=== PATIENT | female | born 1985 | race Caucasian/White ===

== ENCOUNTER 2021-08-10 12:03 | Emergency (ER) | payer SELFPAY ==
[2021-08-10 12:09] VITALS: BP 114/75; PULSE 101; RESP 18; TEMP 36.6; O2SAT 100; BMI 24.2
--- NOTE | 2021-08-10 12:16 | ED_ITS ---
HPI - Skin/Abscess/Foreign Bdy General: Chief complaint: Skin/Abscess/Foreign Body Stated complaint: throat access Time Seen by Provider: 08/10/21 12:14 History of Present Illness: HPI narrative: Patient is a 35-year-old female comes to the ED with a swollen mass on neck. Patient says on Wednesday she noticed she had mild sore throat with some tenderness on the left submandibular region. Today patient woke up and she had significant swelling in left submandibular region with a palpable mass. She states that it hurts to swallow but has no lip or tongue swelling or any trouble breathing or throat swelling. Neck mass is very painful she rates it currently a 9 out of 10. Denies any skin abrasion or dental pain preceding neck mass. Associated symptoms: Deny chills, fever(s), nausea or vomiting Review of Systems Const: Denies: fever(s), chills or fatigue Eyes: Denies: change in vision or eye discomfort ENMT: Reports: odynophagia and other (Swollen and tender left submandibular mass); Denies: throat pain, nasal discharge or nasal congestion Card: Denies: chest pain, palpitations, edema, swelling of feet/ankles, dyspnea on exertion or orthopnea Resp: Denies: dyspnea, productive cough or non-productive cough GI: Denies: abdominal pain, nausea, vomiting, diarrhea, constipation or hematochezia : Denies: flank pain, dysuria or hematuria Musc: Denies: neck pain, back pain or extremity swelling Skin/Breast: Reports: rash (skin over left submandibular) and erythema (skin over left submandibular); Denies: new lesions Neuro: Denies: headache(s), numbness in extremities or weakness in extremities Physical Exam Const: COMMON NORMALS: no acute distress, patient oriented x3 and alert HENMT: COMMON NORMALS: normocephalic HEAD & SCALP: normocephalic MOUTH: Normal oral and palatal mucosa present THROAT: posterior oropharynx normal and uvula midline Eye: COMMON NORMALS: Equal, round and reactive pupils present PUPIL: Yes Equal, round and reactive pupils present Neck/C-Spine: COMMON NORMALS: supple GENERAL: Yes normal visual inspection, Yes lymphadenopathy Lymphadenopathy location: submandibular rubbery and tender 2 cm and Yes submandibular swelling (Left side) OTHER: No purulent drainage from left submandibular mass. Resp: COMMON NORMALS: normal respiratory effort, No retractions, No use of accessory muscles and clear to auscultation bilaterally AUSCULTATION: clear to auscultation bilaterally Cardio: COMMON NORMALS: regular rate, regular rhythm, S1 normal heart sound present, S2 normal heart sound present, No gallops present (Cardio), No clicks present (Cardio), No murmurs present (Cardio) and Peripheral pulses 2+ throughout RATE: regular rate RHYTHM: regular rhythm HEART SOUNDS: S1 normal heart sound present and S2 normal heart sound present PERIPHERAL PULSES: Peripheral pulses 2+ throughout GI: COMMON NORMALS: Normal to inspection, nondistended, normoactive bowel sounds present, Soft to palpation, non-tender and no masses PALPATION: Yes Soft to palpation : COMMON NORMALS: Yes no CVA tenderness BLADDER/KIDNEY EXAM: Yes no CVA tenderness Back/Pelvis: COMMON NORMALS: no CVA tenderness Extremity: COMMON NORMALS: normal to inspection Neuro: COMMON NORMALS: patient oriented x3 and moves all extremities SENSORIUM/ORIENTATION: Yes alert Skin: NARRATIVE SKIN EXAM: Patient has warmth, tenderness and erythema on skin over left submandibular region. Findings suggestive of cellulitis. GENERAL SKIN EXAM: dry skin Course Vital Signs: Vital signs: Vital Signs Temperature 97.9 F 08/10/21 12:09 Pulse Rate 79 08/10/21 15:43 Respiratory Rate 16 08/10/21 15:43 Blood Pressure 119/72 08/10/21 15:43 Pulse Oximetry 96 08/10/21 15:43 MDM - Skin/Abscess/Foreign Bdy MDM Narrative: Medical decision making narrative: Patient is a 35-year-old female comes to the ED with a left submandibular mass. Mass started approximately 2 days ago. patient appears in no acute distress and denies any trouble breathing and has no angioedema. Left submandibular masses approximately 2 cm upon palpation, likely a reactive submandibular lymph node. It has erythema, warmth and tenderness as well. No purulent drainage. Vitals are stable. Patient has a white blood cell count of 13.6. Rest of CBC and CMP were unremarkable. hCG negative. CT of neck showed some left submandibular cellulitis with reactive submandibular lymph nodes. Patient was given a dose of IV Rocephin and Decadron while here in the ED. Patient diagnosed with cellulitis and discharged home with a prescription for Bactrim. She was told to follow-up with her PCP in 7 to 10 days reevaluation. Return to ED precautions given. Patient understood and agreed with plan. Lab Data: Labs: Lab Results 08/10/21 08/10/21 08/10/21 12:40 12:40 12:40 WBC 13.6 10^3/uL H 10 ^3/uL (4.0-10.0) RBC 4.35 10^6/uL 10^6 /uL (4.1-5.3) Hgb 12.7 g/dL g/dL (11.5-15.3) Hct 39.5 % % (37.0-47.0) MCV 90.8 fl fl (81-99) MCH 29.2 pg pg (28.0-34.0) MCHC 32.2 g/dL g/dL (30.0-36.0) RDW 13.2 % % (12.1-15.1) Plt Count 339 10^3/cmm 10^3 /cmm (130-400) MPV 10.1 fL fL (7.4-10.4) Neut % (Auto) 77.6 % % Lymph % (Auto) 13.3 % % [place] % (Auto) 6.7 % % Eos % (Auto) 1.5 % % Baso % (Auto) 0.4 % % Neut # (Auto) 10.52 10^3/uL H 1 0^3/uL (1.8-7.7) Lymph # (Auto) 1.8 10^3/uL 10^3/ uL (0.8-4.8) [place] # (Auto) 0.9 10^3/uL 10^3/ uL (0.2-0.9) Eos # (Auto) 0.2 10^3/uL 10^3/ uL (0.0-0.8) Baso # (Auto) 0.1 10^3/uL 10^3/ uL (0.0-0.1) Nucleated RBC % (a uto) 0 % % Nucleated RBCs # 0.0 /100WBC /100W BC Sodium 136 mmol/L mmol/L (136-145) Potassium 3.6 mmol/L mmol/L (3.5-5.1) Chloride 101 mmol/L mmol/L (98-107) Carbon Dioxide 24 mmol/L mmol/L (22-29) Anion Gap 14.6 (5-19) BUN 10 mg/dL mg/dL (6-20) Creatinine 0.6 mg/dL mg/dL (0.5-0.9) GFR Calculation 115.1 mL/min mL/m in (90-130) Glucose 99 mg/dL mg/dL (65-115) Calculated Osmolal ity 281 mOsm/kg L mOs m/kg (285-295) Calcium 9.3 mg/dL mg/dL (8.5-10.5) Total Bilirubin 0.4 mg/dL mg/dL (0.15-1.2) AST 12 U/L U/L (0-32) ALT 6 U/L U/L (0-33) Alkaline Phosphata se 75 IU/L IU/L (35-105) Total Protein 7.4 g/dL g/dL (6.6-8.7) Albumin 4.2 g/dL g/dL (3.5-5.2) Globulin 3.2 g/dL g/dL (1.3-4.6) HCG, Qual Negative (Negative) Imaging Data^: Other CT: Attestation: I personally reviewed and interpreted this imaging study as follows: Radiologist's impression: [facility] [address] [address] Scan Report Signed Patient: Paradise Suárez Unit #: [id number] : 1985 Age/Sex: 35 / F ADM Date: 08/10/21 Loc: ER Room/Bed: Attending Dr: Ordering Provider/Ordering MD: Leroy De Oliveira Date of Service: 08/10/21 Procedure(s): CT neck w con* [id number] Accession Number(s): [id number] Report Number: [id number] PROCEDURE INFORMATION: Exam: CT Neck With Contrast Exam date and time: 08/10/2021 12:21 PM Age: 35 years old Clinical indication: Mass, lump, or swelling in neck; Left; Additional info: Large swollen tender mass left submandibular region TECHNIQUE: Imaging protocol: Computed tomography images of the neck with contrast. Radiation optimization: All CT scans at this facility use at least one of these dose optimization techniques: automated exposure control; mA and/or kV adjustment per patient size (includes targeted exams where dose is matched to clinical indication); or iterative reconstruction. Contrast material: OMNI 350; Contrast volume: 95 ml; Contrast route: INTRAVENOUS (IV); COMPARISON: No relevant prior studies available. RADIATION DOSE METRICS: Total DLP (mGy-cm): 416.41 FINDINGS: Nasopharynx: Unremarkable. Oropharynx: Unremarkable. No significant tonsillar enlargement. Hypopharynx: Unremarkable. Normal epiglottis. Larynx: Unremarkable. Retropharyngeal space: Unremarkable. Submandibular/Parotid glands: Normal appearance of the submandibular glands. Asymmetric swelling and stranding surrounding the left submandibular gland and in the overlying subcutaneous tissues. No discrete fluid collection. No soft tissue air. Thyroid: Normal. No enlarged or calcified nodules. Lymph nodes: There are multiple bilateral enlarged submandibular lymph nodes, left greater than right with largest measuring up to 12 mm in short axis. Trachea: Visualized trachea is unremarkable. Lungs: Unremarkable as visualized. Bones/joints: Osseous structures unremarkable. Soft tissues: See Submandibular/Parotid glands finding. Other findings: No acute findings within the included upper thorax. CT/CT neck w con* [id number] IMPRESSION: 1. Asymmetric swelling and stranding of the left submandibular tissues, correlate for cellulitis. No fluid collection/abscess. The left submandibular gland itself is normal in appearance. 2. Reactive submandibular lymph nodes, left greater than right. Radiation Dose CTDIVOL = (mGy): DLP = 416.41 (mGy-cm) Dictated By: Santhosh Lott MD Signed By: Santhosh Lott MD Signed Date/Time: 08/10/21 1453 DD/ 1221 Discharge Plan Discharge Patient Disposition: Home Clinical Impression: Cellulitis Qualifiers: Site of cellulitis: head Qualified Code(s): L03.811 - Cellulitis of head [any part, except face] Condition: Stable Prescriptions: New Bactrim DS 800-160 mg tablet 1 tab PO BID 7 Days Qty: 14 RF: 0 Discharge Orders: Discharge ED (Routine); Ordered 08/10/21 Ordered By: Leryo De Oliveira Discharge Diet: Regular Discharge Activity: Resume usual activity Patient Instructions: Cellulitis (ED) Activity Restrictions/Additional Instructions: Follow-up with medical provider as directed in 7 to 10 days reevaluation. Take medications as prescribed. Return to the ER or your medical provider if condition worsens. Please read and understand discharge instructions. Thank you for choosing [facility] for your healthcare needs today. Please realize this is an emergency room and that we are providing you with a medical screening exam and this may not be complete and all inclusive of all the testing and or work up that you may need to determine your ailment or severity of your illness. It is very important that you follow up as instructed or that you return to the Emergency Department should you have concerns or if your condition changes or worsens in any way. Coding Level of Care Code ED [employer] Exam Comprehensive
--- NOTE | 2021-08-10 12:21 | CTR_ITS ---
PROCEDURE INFORMATION: Exam: CT Neck With Contrast Exam date and time: 08/10/2021 12:21 PM Age: 35 years old Clinical indication: Mass, lump, or swelling in neck; Left; Additional info: Large swollen tender mass left submandibular region TECHNIQUE: Imaging protocol: Computed tomography images of the neck with contrast. Radiation optimization: All CT scans at this facility use at least one of these dose optimization techniques: automated exposure control; mA and/or kV adjustment per patient size (includes targeted exams where dose is matched to clinical indication); or iterative reconstruction. Contrast material: OMNI 350; Contrast volume: 95 ml; Contrast route: INTRAVENOUS (IV); COMPARISON: No relevant prior studies available. RADIATION DOSE METRICS: Total DLP (mGy-cm): 416.41 FINDINGS: Nasopharynx: Unremarkable. Oropharynx: Unremarkable. No significant tonsillar enlargement. Hypopharynx: Unremarkable. Normal epiglottis. Larynx: Unremarkable. Retropharyngeal space: Unremarkable. Submandibular/Parotid glands: Normal appearance of the submandibular glands. Asymmetric swelling and stranding surrounding the left submandibular gland and in the overlying subcutaneous tissues. No discrete fluid collection. No soft tissue air. Thyroid: Normal. No enlarged or calcified nodules. Lymph nodes: There are multiple bilateral enlarged submandibular lymph nodes, left greater than right with largest measuring up to 12 mm in short axis. Trachea: Visualized trachea is unremarkable. Lungs: Unremarkable as visualized. Bones/joints: Osseous structures unremarkable. Soft tissues: See Submandibular/Parotid glands finding. Other findings: No acute findings within the included upper thorax. CT/CT neck w con* [id number] IMPRESSION: 1. Asymmetric swelling and stranding of the left submandibular tissues, correlate for cellulitis. No fluid collection/abscess. The left submandibular gland itself is normal in appearance. 2. Reactive submandibular lymph nodes, left greater than right. Radiation Dose CTDIVOL = (mGy): DLP = 416.41 (mGy-cm)
[2021-08-10] MEDS: sodium chloride 0.9% 500 ML IV (12:52)
[2021-08-10 13:00] LABS: Basophils # 0.1 10^3/uL (0.0-0.1); Basophils % 0.4 %; Eosinophils # 0.2 10^3/uL (0.0-0.8); Eosinophils % 1.5 %; Hematocrit 39.5 % (37.0-47.0); Hemoglobin 12.7 g/dL (11.5-15.3); Lymphocytes # 1.8 10^3/uL (0.8-4.8); Lymphocytes % 13.3 %; Mean Corpuscular HGB Conc 32.2 g/dL (30.0-36.0); Mean Corpuscular Hemoglobin 29.2 pg (28.0-34.0); Mean Corpuscular Volume 90.8 fl (81-99); Mean Platelet Volume 10.1 fL (7.4-10.4); Monocytes # 0.9 10^3/uL (0.2-0.9); Monocytes % 6.7 %; Neutrophils # 10.52 10^3/uL (1.8-7.7); Neutrophils % 77.6 %; Nucleated Red Blood Cells % 0 %; Platelet Count 339 10^3/cmm (130-400); Red Blood Count 4.35 10^6/uL (4.1-5.3); Red Cell Distribution Width 13.2 % (12.1-15.1); White Blood Count 13.6 10^3/uL (4.0-10.0)
[2021-08-10 13:11] LABS: HCG, Serum Qual Negative (Negative)
[2021-08-10 13:16] LABS: Alanine Aminotransferase 6 U/L (0-33); Albumin Level 4.2 g/dL (3.5-5.2); Alkaline Phosphatase 75 IU/L (35-105); Anion Gap 14.6 (5-19); Aspartate Amino Transferase 12 U/L (0-32); Carbon Dioxide 24 mmol/L (22-29); Chloride 101 mmol/L (98-107); Globulin 3.2 g/dL (1.3-4.6); Glucose 99 mg/dL (65-115); Potassium 3.6 mmol/L (3.5-5.1); Sodium 136 mmol/L (136-145); Total Protein 7.4 g/dL (6.6-8.7)
[2021-08-10] MEDS: ketorolac 30 mg/mL INJ IVP (13:30)
[2021-08-10 13:38] LABS: Blood Urea Nitrogen 10 mg/dL (6-20); Calcium 9.3 mg/dL (8.5-10.5); Glomerular Filtration Rate 115.1 mL/min (90-130); Osmolality Calculated 281 mOsm/kg (285-295); Total Bilirubin 0.4 mg/dL (0.15-1.2)
[2021-08-10] MEDS: iohexol 350 mg/mL 100 mL Btl IV (13:50)
[2021-08-10] MEDS: dexamethasone 10 mg/mL INJ IVP (15:23)
[2021-08-10] MEDS: cefTRIAXone 1,000 MG in sodium chloride 0.9% (plus) 50 ML 100 MG IV (15:23)
[2021-08-10 15:43] VITALS: BP 119/72; PULSE 79; RESP 16; O2SAT 96
== END 2021-08-10 15:57 | disposition home or self-care (01) ==
PROVIDERS: Emergency Provider Physician Assistant
DX: L03.811 Cellulitis of head [any part, except face] (principal)
CPT/HCPCS: 70491; 80053; 84703; 85025; 87040; 96365; 96375; 99283; J0696; J1100; J1885; J7040; Q9967

== ENCOUNTER 2021-08-27 01:15 | Emergency (ER) | payer SELFPAY ==
[2021-08-27] VITALS (9 sets, daily range): BP systolic 100–161; BP diastolic 50–77; PULSE 95–116; RESP 17–30; O2SAT 98–99; BMI 24.2
[2021-08-27] MEDS: EPINEPHrine 1 mg/mL INJ 0.3 MG IM ×2 (01:34→04:40)
[2021-08-27] MEDS: diphenhydrAMINE 50 mg/mL SDV 1mL IVP ×2 (01:34→04:31)
[2021-08-27] MEDS: famotidine 20 mg/2 mL INJ 40 MG IVP (01:34)
[2021-08-27] MEDS: sodium chloride 0.9% 1,000 ML 999 ML IV (01:34)
--- NOTE | 2021-08-27 01:36 | W.ED.ALLEREA ---
Documented by User: SUSANNA Garrison 08/27/21 03:21 HPI - Allergic Reaction General: Chief complaint: Allergic Reaction Stated complaint: Allergic Reaction\ Time Seen by Provider: 08/27/21 01:24 History of Present Illness: HPI narrative: Patient is a 36-year-old female presents to the ED with allergic reaction symptoms. Patient says approximately 30 minutes upon arrival to the ED she developed a pruritic rash on her abdomen that spread all throughout her torso and onto her arms neck and face. She then developed some shortness of breath and states she feels like her throat is tightening. She took a shower to see if that would help the rash and then she started developing lower abdominal cramping pain. Denies any known allergies or any history of allergic reactions. Denies any change in lotions, soaps, detergents or shampoos. Denies eating any different foods today to cause symptoms. Denies any recent change in medications. Denies any recent drug use. Associated symptoms: Reports abdominal pain (lower bilateral abdominal cramping); Deny nausea or vomiting Review of Systems Const: Denies: fever(s), chills or fatigue Eyes: Denies: change in vision or eye discomfort ENMT: Denies: throat pain, odynophagia, nasal discharge or nasal congestion Card: Denies: chest pain, palpitations, edema, swelling of feet/ankles, dyspnea on exertion or orthopnea Resp: Reports: dyspnea; Denies: productive cough or non-productive cough GI: Reports: abdominal pain (lower bilateral abdominal cramping) and GI cramping; Denies: nausea, vomiting, diarrhea, constipation or hematochezia : Denies: flank pain, dysuria or hematuria Musc: Denies: neck pain, back pain or extremity swelling Skin/Breast: Denies: rash or new lesions Neuro: Denies: headache(s), numbness in extremities or weakness in extremities All/Imm: Reports: urticaria and throat swelling Physical Exam Narrative: EXAM NARRATIVE: Patient is rolling around on exam bed and appears in distress. No signs of any respiratory distress. Const: COMMON NORMALS: patient oriented x3 and alert GENERAL APPEARANCE: in distress HENMT: COMMON NORMALS: normocephalic HEAD & SCALP: normocephalic MOUTH: Normal oral and palatal mucosa present, lip normal and tongue normal THROAT: posterior oropharynx normal and uvula midline Neck/C-Spine: COMMON NORMALS: supple GENERAL: Yes normal visual inspection Resp: COMMON NORMALS: normal respiratory effort, No retractions, No use of accessory muscles and clear to auscultation bilaterally AUSCULTATION: clear to auscultation bilaterally Cardio: COMMON NORMALS: regular rate, regular rhythm, S1 normal heart sound present, S2 normal heart sound present, No gallops present (Cardio), No clicks present (Cardio), No murmurs present (Cardio) and Peripheral pulses 2+ throughout RATE: regular rate RHYTHM: regular rhythm HEART SOUNDS: S1 normal heart sound present and S2 normal heart sound present PERIPHERAL PULSES: Peripheral pulses 2+ throughout GI: COMMON NORMALS: Normal to inspection, nondistended, normoactive bowel sounds present, Soft to palpation, non-tender and no masses PALPATION: Yes Soft to palpation : COMMON NORMALS: Yes no CVA tenderness BLADDER/KIDNEY EXAM: Yes no CVA tenderness Back/Pelvis: COMMON NORMALS: no CVA tenderness Neuro: COMMON NORMALS: patient oriented x3 and moves all extremities SENSORIUM/ORIENTATION: Yes alert Skin: NARRATIVE SKIN EXAM: Erythemic and maculopapular rash seen on abdomen, bilateral arms, neck and face. Course Reevaluation(s): Reevaluation #1: I went in to check on patient after she received IM epinephrine, IV Solu-Medrol and Benadryl. Patient says her rash feels like it is improving and her throat swelling has improved. She still complained having lower abdominal cramping. She states that if she puts her hand down in her lower abdomen and put some pressure on it it does improve some of the pain. She says the abdominal pain feels like cramping pains you get during menstrual period. Time: 02:00 Reevaluation #2: I went in again to check on patient and she says she is feeling a lot better. Her abdominal pain and cramping has completely resolved. She reports just having a little bit of itchiness to her face but denies any throat swelling or shortness of breath. Patient says she is feeling a lot better. Time: 02:42 Vital Signs: Vital signs: Vital Signs Pulse Rate 104 H 08/27/21 01:35 Respiratory Rate 25 H 08/27/21 02:12 Blood Pressure 127/61 08/27/21 01:35 Pulse Oximetry 98 11/24/21 01:35 MDM - Allergic Reaction MDM Narrative: Medical decision making narrative: Patient is a 36-year-old female comes to the ED with anaphylaxis. Patient says she has no past history of any anaphylactic reactions. Approximately 30 minutes before arrival to the ED she started developing a pruritic rash on her abdomen that began to spread throughout torso, upper extremities neck and face. She developed throat swelling and felt short of breath. She then started having very sharp abdominal cramping pain. Upon presenting to the ED she was immediately brought back to a room and examining the patient she had an erythemic and pruritic maculopapular rash all throughout abdomen bilateral arms neck and face. No visible tongue or lip swelling noted. She appeared in no acute distress and pain and was rolling around on exam bed. Vitals showed blood pressure 127/61, pulse 104, respirations 30, O2 sat 98% on room air. I ordered EpiPen IM, IV fluids, Solu-Medrol, Benadryl and famotidine. After she was given meds her throat swelling and rash started improving. She was still having abdominal pain and cramping so I gave her some IV morphine to help with the symptoms. Patient's abdominal pain and cramping completely resolved. Patient does not currently have a primary care physician and would like a referral to get established with one. I placed order with case management for patient to be referred to get established with PCP. At the end of my shift, I transferred patient care over to Dr. Dixon so he can monitor patient a little longer. Lab Data: Attestation: I reviewed the patient's lab results. Labs: Lab Results 08/27/21 08/27/21 08/27/21 01:30 01:30 01:30 WBC 10.9 10^3/uL H 10 ^3/uL (4.0-10.0) RBC 3.88 10^6/uL L 10 ^6/uL (4.1-5.3) Hgb 11.3 g/dL L g/dL (11.5-15.3) Hct 34.4 % L % (37.0-47.0) MCV 88.7 fl fl (81-99) MCH 29.1 pg pg (28.0-34.0) MCHC 32.8 g/dL g/dL (30.0-36.0) RDW 13.0 % % (12.1-15.1) Plt Count 414 10^3/cmm H 10 ^3/cmm (130-400) MPV 9.8 fL fL (7.4-10.4) Neut % (Auto) 64.1 % % Lymph % (Auto) 27.2 % % Sawyer % (Auto) 6.6 % % Eos % (Auto) 1.3 % % Baso % (Auto) 0.3 % % Neut # (Auto) 7.02 10^3/uL 10^3 /uL (1.8-7.7) Lymph # (Auto) 3.0 10^3/uL 10^3/ uL (0.8-4.8) Sawyer # (Auto) 0.7 10^3/uL 10^3/ uL (0.2-0.9) Eos # (Auto) 0.1 10^3/uL 10^3/ uL (0.0-0.8) Baso # (Auto) 0.0 10^3/uL 10^3/ uL (0.0-0.1) Nucleated RBC % (a uto) 0 % % Nucleated RBCs # 0.0 /100WBC /100W BC Sodium 136 mmol/L mmol/L (136-145) Potassium 3.7 mmol/L mmol/L (3.5-5.1) Chloride 99 mmol/L mmol/L (98-107) Carbon Dioxide 23 mmol/L mmol/L (22-29) Anion Gap 17.7 (5-19) BUN 16 mg/dL mg/dL (6-20) Creatinine 0.8 mg/dL mg/dL (0.5-0.9) GFR Calculation 82.1 mL/min L mL/ min (90-130) Glucose 109 mg/dL mg/dL (65-115) Calculated Osmolal ity 284 mOsm/kg L mOs m/kg (285-295) Calcium 8.7 mg/dL mg/dL (8.5-10.5) Total Bilirubin 0.2 mg/dL mg/dL (0.15-1.2) AST 15 U/L U/L (0-32) ALT 11 U/L U/L (0-33) Alkaline Phosphata se 70 IU/L IU/L (35-105) Total Protein 7.3 g/dL g/dL (6.6-8.7) Albumin 4.3 g/dL g/dL (3.5-5.2) Globulin 3.0 g/dL g/dL (1.3-4.6) Lipase 21 U/L U/L (13-60) HCG, Qual Negative (Negative) Discharge Plan Discharge Patient Disposition: Home Clinical Impression: Anaphylaxis Qualifiers: Encounter type: initial encounter Qualified Code(s): T78.2XXA - Anaphylactic shock, unspecified, initial encounter Condition: Stable Prescriptions: New EpiPen 2-Joselito 0.3 mg/0.3 mL auto-injector 0.3 mg IM Q20M PRN (Reason: anaphylaxis) Qty: 2 RF: 0 prednisone 20 mg tablet 20 mg PO BID 5 Days Qty: 10 RF: 0 Discharge Orders: Discharge ED (Routine); Ordered 08/27/21 Ordered By: Scott Dixon Discharge Diet: Regular Discharge Activity: Resume usual activity Patient Instructions: Anaphylaxis (ED) Activity Restrictions/Additional Instructions: Follow-up with medical provider as directed. Take medications as prescribed. Return to the ER or your medical provider if condition worsens. Please read and understand discharge instructions. Thank you for choosing [facility] for your healthcare needs today. Please realize this is an emergency room and that we are providing you with a medical screening exam and this may not be complete and all inclusive of all the testing and or work up that you may need to determine your ailment or severity of your illness. It is very important that you follow up as instructed or that you return to the Emergency Department should you have concerns or if your condition changes or worsens in any way. Coding Level of Care Code ED Cytotechnologist Supervisor for Chg Fwd Exam Comprehensive Documented by User: Scott Dixon MD 08/27/21 05:34 HPI - Allergic Reaction General: Chief complaint: Allergic Reaction Stated complaint: Allergic Reaction\ Time Seen by Provider: 08/27/21 01:24 Course Reevaluation(s): Reevaluation #1: I went and evaluated patient she is still having pruritus still has a rash to trunk states that the swelling in her throat and her breathing is much improved but still feels pruritic. Patient only was given 0.3 of epinephrine will give another dose of 0.3 of epinephrine at this time along with Benadryl. Time: 04:32 Vital Signs: Vital signs: Vital Signs Pulse Rate 104 H 08/27/21 01:35 Respiratory Rate 25 H 08/27/21 02:12 Blood Pressure 127/61 08/27/21 01:35 Pulse Oximetry 98 08/27/21 01:35 MDM - Allergic Reaction MDM Narrative: Medical decision making narrative: Patient presents here with allergic reaction patient feels much improved currently patient prescribed EpiPen along with steroids. Patient is to follow-up PCP and return if worsening. Lab Data: Labs: Lab Results 08/27/21 08/27/21 08/27/21 01:30 01:30 01:30 WBC 10.9 10^3/uL H 10 ^3/uL (4.0-10.0) RBC 3.88 10^6/uL L 10 ^6/uL (4.1-5.3) Hgb 11.3 g/dL L g/dL (11.5-15.3) Hct 34.4 % L % (37.0-47.0) MCV 88.7 fl fl (81-99) MCH 29.1 pg pg (28.0-34.0) MCHC 32.8 g/dL g/dL (30.0-36.0) RDW 13.0 % % (12.1-15.1) Plt Count 414 10^3/cmm H 10 ^3/cmm (130-400) MPV 9.8 fL fL (7.4-10.4) Neut % (Auto) 64.1 % % Lymph % (Auto) 27.2 % % Sawyer % (Auto) 6.6 % % Eos % (Auto) 1.3 % % Baso % (Auto) 0.3 % % Neut # (Auto) 7.02 10^3/uL 10^3 /uL (1.8-7.7) Lymph # (Auto) 3.0 10^3/uL 10^3/ uL (0.8-4.8) Sawyer # (Auto) 0.7 10^3/uL 10^3/ uL (0.2-0.9) Eos # (Auto) 0.1 10^3/uL 10^3/ uL (0.0-0.8) Baso # (Auto) 0.0 10^3/uL 10^3/ uL (0.0-0.1) Nucleated RBC % (a uto) 0 % % Nucleated RBCs # 0.0 /100WBC /100W BC Sodium 136 mmol/L mmol/L (136-145) Potassium 3.7 mmol/L mmol/L (3.5-5.1) Chloride 99 mmol/L mmol/L (98-107) Carbon Dioxide 23 mmol/L mmol/L (22-29) Anion Gap 17.7 (5-19) BUN 16 mg/dL mg/dL (6-20) Creatinine 0.8 mg/dL mg/dL (0.5-0.9) GFR Calculation 82.1 mL/min L mL/ min (90-130) Glucose 109 mg/dL mg/dL (65-115) Calculated Osmolal ity 284 mOsm/kg L mOs m/kg (285-295) Calcium 8.7 mg/dL mg/dL (8.5-10.5) Total Bilirubin 0.2 mg/dL mg/dL (0.15-1.2) AST 15 U/L U/L (0-32) ALT 11 U/L U/L (0-33) Alkaline Phosphata se 70 IU/L IU/L (35-105) Total Protein 7.3 g/dL g/dL (6.6-8.7) Albumin 4.3 g/dL g/dL (3.5-5.2) Globulin 3.0 g/dL g/dL (1.3-4.6) Lipase 21 U/L U/L (13-60) HCG, Qual Negative (Negative) Discharge Plan Discharge Patient Disposition: Home Clinical Impression: Anaphylaxis Qualifiers: Encounter type: initial encounter Qualified Code(s): T78.2XXA - Anaphylactic shock, unspecified, initial encounter Condition: Stable Prescriptions: New EpiPen 2-Joselito 0.3 mg/0.3 mL auto-injector 0.3 mg IM Q20M PRN (Reason: anaphylaxis) Qty: 2 RF: 0 prednisone 20 mg tablet 20 mg PO BID 5 Days Qty: 10 RF: 0 Discharge Orders: Discharge ED (Routine); Ordered 08/27/21 Ordered By: Scott Dixon Discharge Diet: Regular Discharge Activity: Resume usual activity Patient Instructions: Anaphylaxis (ED) Activity Restrictions/Additional Instructions: Follow-up with medical provider as directed. Take medications as prescribed. Return to the ER or your medical provider if condition worsens. Please read and understand discharge instructions. Thank you for choosing [facility] for your healthcare needs today. Please realize this is an emergency room and that we are providing you with a medical screening exam and this may not be complete and all inclusive of all the testing and or work up that you may need to determine your ailment or severity of your illness. It is very important that you follow up as instructed or that you return to the Emergency Department should you have concerns or if your condition changes or worsens in any way. Coding Level of Care Code ED Cytotechnologist Supervisor for Porfirio Bello Exam Comprehensive
[2021-08-27 01:46] LABS: Basophils % 0.3 %; Eosinophils # 0.1 10^3/uL (0.0-0.8); Eosinophils % 1.3 %; Hematocrit 34.4 % (37.0-47.0); Hemoglobin 11.3 g/dL (11.5-15.3); Lymphocytes % 27.2 %; Mean Corpuscular HGB Conc 32.8 g/dL (30.0-36.0); Mean Corpuscular Hemoglobin 29.1 pg (28.0-34.0); Mean Corpuscular Volume 88.7 fl (81-99); Mean Platelet Volume 9.8 fL (7.4-10.4); Monocytes # 0.7 10^3/uL (0.2-0.9); Monocytes % 6.6 %; Neutrophils # 7.02 10^3/uL (1.8-7.7); Neutrophils % 64.1 %; Nucleated Red Blood Cells % 0 %; Platelet Count 414 10^3/cmm (130-400); Red Blood Count 3.88 10^6/uL (4.1-5.3); White Blood Count 10.9 10^3/uL (4.0-10.0)
[2021-08-27 01:58] LABS: HCG, Serum Qual Negative (Negative)
[2021-08-27 02:07] LABS: Alanine Aminotransferase 11 U/L (0-33); Albumin Level 4.3 g/dL (3.5-5.2); Alkaline Phosphatase 70 IU/L (35-105); Anion Gap 17.7 (5-19); Aspartate Amino Transferase 15 U/L (0-32); Blood Urea Nitrogen 16 mg/dL (6-20); Calcium 8.7 mg/dL (8.5-10.5); Carbon Dioxide 23 mmol/L (22-29); Chloride 99 mmol/L (98-107); Glomerular Filtration Rate 82.1 mL/min (90-130); Glucose 109 mg/dL (65-115); Lipase 21 U/L (13-60); Osmolality Calculated 284 mOsm/kg (285-295); Potassium 3.7 mmol/L (3.5-5.1); Sodium 136 mmol/L (136-145); Total Bilirubin 0.2 mg/dL (0.15-1.2); Total Protein 7.3 g/dL (6.6-8.7)
[2021-08-27] MEDS: ondansetron 2 mg/ML SDV 2 mL 4 MG IVP (02:12)
[2021-08-27] MEDS: morphine 4 mg/mL SDV 1 mL IVP (02:12)
--- NOTE | 2021-08-27 11:55 | DCPLANNER ---
manager animation had message to speak with patient about getting established with a primary care physician. manager animation called phone number [phone], unable to speak with patient at this time, a voicemail was left for patient to return disease case manager rn phone call.
== END 2021-08-27 05:45 | disposition home or self-care (01) ==
PROVIDERS: Physician Assistant; Emergency Provider Emergency Medicine
DX: T78.2XXA Anaphylactic shock, unspecified, initial encounter (principal)
CPT/HCPCS: 80053; 83690; 84703; 85025; 96361; 96372; 96374; 96375; 96376; 99284; J0171; J1200; J2270; J2405; J2930; J3490; J7030

== ENCOUNTER → 2023-08-27 18:41 | Outpatient (BNVA) | payer MEDICAID, SELFPAY | PROVIDERS: Visit Provider Registered Nurse Neonatal Intensive Care | DX: R05.9 Cough, unspecified (principal) | CPT/HCPCS: 87426 ==

== ENCOUNTER → 2023-11-11 18:55 | Outpatient (BNVA) | payer MEDICAID, SELFPAY | PROVIDERS: Visit Provider Nurse Practitioner | DX: J02.9 Acute pharyngitis, unspecified (principal); R05.9 Cough, unspecified | CPT/HCPCS: 87400; 87426; 87880 ==

== ENCOUNTER 2024-09-15 14:59 | Outpatient (CLI) | payer MEDICAID, SELFPAY ==
--- NOTE | 2024-09-15 15:01 | XR_ITS ---
WS: [id number] Exam: XR lumbar spine 2-3V* [id number] Date/Time of Exam: 09/15/2024 3:16 PM Reason For Exam: coccyx fx remote past; 2 months low back pain at waist No fracture or malalignment. Slight narrowing of the L4-5 and L5-S1 disc spaces. Slight levoscoliosis of the lower L-spine. Posterior elements are intact. XR/XR lumbar spine 2-3V* [id number] IMPRESSION: 1. No fracture identified. 2. Slight disc space narrowing at L4-5 and L5-S1.
== END 2024-09-15 15:00 | disposition home or self-care (01) ==
PROVIDERS: PCP Family Medicine; Visit Provider Family Medicine
DX: M54.50 Low back pain, unspecified (principal); G89.29 Other chronic pain; M62.830 Muscle spasm of back; Z87.81 Personal history of (healed) traumatic fracture
CPT/HCPCS: 72100

== ENCOUNTER 2024-12-06 12:07 | Emergency (ER) | payer SELFPAY ==
[2024-12-06 12:11] VITALS: BP 113/64; PULSE 89; RESP 18; TEMP 36.7; O2SAT 96; BMI 25.4
--- NOTE | 2024-12-06 12:59 | W.ED.EYEPROB ---
HPI - Eye Problem General: Chief complaint: Eye Problems Stated complaint: left eye pain Time Seen by Provider: 12/06/24 12:24 Source: patient Mode of arrival: ambulatory Limitations: no limitations History of Present Illness: 39-year-old female states she woke up with pain to her left upper eyelid. States she has had a history of styes in the past states this is felt similar but slightly more painful she denies any change in vision denies any pain with range of motion of her eye. She had seen urgent care started on erythromycin ointment today. Associated symptoms: Denies fever(s), headache(s), nausea, neck pain or vomiting Related Data Previous Rx's ?Medication ?Instructions ?Recorded amoxicillin 500 mg-potassium 1 tab PO BID #14 tabs 12/06/24 clavulanate 125 mg tablet (Augmentin) cefdinir 300 mg capsule 300 mg PO BID #14 caps 12/06/24 tramadol 50 mg tablet 50 mg PO Q8H PRN pain #14 tabs 12/06/24 Allergies Allergy/AdvReac Type Severity Reaction Status Date / Time sulfamethoxazole (From Allergy Severe ALGY-Anaphy Verified 12/06/24 08:46 Bactrim) laxis trimethoprim (From Bactrim) Allergy Severe ALGY-Anaphy Verified 12/06/24 08:46 laxis Review of Systems Const: Denies: fever(s), chills, body aches or change in appetite Eyes: Reports: eye discomfort ENMT: Denies: throat pain or dental pain Card: Denies: chest pain Resp: Denies: dyspnea GI: Denies: abdominal pain, nausea, vomiting or diarrhea Musc: Denies: neck pain or back pain Skin/Breast: Denies: rash Neuro: Denies: headache(s) PFS ED PFSH: Medical History Eyelid cellulitis Spasm of muscle of lower back 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 Neck/C-Spine: COMMON NORMALS: full ROM and supple Chest: COMMONS NORMALS: normal inspection of the chest and normal palpation of entire chest wall Resp: COMMON NORMALS: normal respiratory effort, No retractions, No use of accessory muscles and clear to auscultation bilaterally AUSCULTATION: clear to auscultation bilaterally Cardio: COMMON NORMALS: regular rate, regular rhythm and No murmurs present (Cardio) RATE: regular rate RHYTHM: regular rhythm Extremity: COMMON NORMALS: normal to inspection and full ROM Neuro: COMMON NORMALS: patient oriented x3, moves all extremities and no focal motor deficits Psych: COMMON NORMALS: mental status grossly normal, Normal thought process present and cooperative THOUGHT PROCESS: Normal thought process present Skin: COMMON NORMALS: no rashes or lesions noted and no wounds GENERAL SKIN EXAM: no rashes or lesions noted Course Vital Signs: Vital signs: Vital Signs Temperature 98.1 F 12/06/24 12:11 Pulse Rate 89 12/06/24 12:11 Respiratory Rate 18 12/06/24 12:11 Blood Pressure 113/64 12/06/24 12:11 Pulse Oximetry 96 12/06/24 12:11 Oxygen Delivery Me thod Room Air 12/06/24 12:11 MDM - Eye Problem Medical Decision Making Patient presents here with stye to left eyelid has a mild cellulitis no signs of orbital cellulitis will start on Augmentin she is to continue erythromycin we will get her follow-up with ophthalmology she is return if worsening she understands agrees to plan. Medical Records I reviewed the patient's medical records. No radiology studies performed this visit Discharge Plan Discharge Patient Disposition: Home Clinical Impression: Hordeolum externum left upper eyelid Condition: Stable Prescriptions: New amoxicillin-pot clavulanate [Augmentin] 500-125 mg tablet 1 tab PO BID Qty: 14 0RF No Action cefdinir 300 mg capsule 300 mg PO BID Qty: 14 0RF tramadol 50 mg tablet 50 mg PO Q8H PRN (Reason: pain) Qty: 14 0RF Discharge Orders: Discharge ED (Routine); Ordered 12/06/24 Ordered By: Scott Dixon Referrals: Femi Farr [Referring] - 4-7 days Leslie Aguilera MD [Primary Care Provider] - Discharge Diet: Advance as tolerated Discharge Activity: Resume usual activity Patient Instructions: Roderick (Hordeolum) Print Language: Luxembourgish Coding Level of Care Code ED Cylinder Block Mechanic for Porfirio Bello
--- NOTE | 2024-12-06 16:40 | DCPLANNER ---
faxed referral packet to dr funk
== END 2024-12-06 13:06 | disposition home or self-care (01) ==
PROVIDERS: Emergency Provider Emergency Medicine; PCP Family Medicine
DX: H00.014 Hordeolum externum left upper eyelid (principal)
CPT/HCPCS: 99283

== ENCOUNTER 2025-05-23 22:23 | Emergency (ER) | payer MEDICAID, SELFPAY ==
[2025-05-23 22:24] VITALS: BP 115/77; PULSE 82; RESP 16; TEMP 36.7; O2SAT 98; BMI 23.3
--- NOTE | 2025-05-23 23:37 | XRR_ITS ---
PROCEDURE INFORMATION: Exam: XR Right Ankle Exam date and time: 05/23/2025 11:39 PM Age: 39 years old Clinical indication: Injury or trauma; Fall; Swelling (edema); Ankle; Right TECHNIQUE: Imaging protocol: Radiologic exam of the right ankle. Views: 3 or more views. COMPARISON: No relevant prior studies available. FINDINGS: Bones/joints: No bony abnormalities. Soft tissues: Maybe some mild soft tissue swelling anterior to ankle. XR/XR ankle RT min 3V* [id number] IMPRESSION: No acute bony abnormalities.
[2025-05-23 23:50] VITALS: BP 95/68; PULSE 76; O2SAT 98
--- NOTE | 2025-05-23 23:58 | ED_ITS ---
HPI - Extremity Problem General: Chief complaint: Extremity Injury, Lower Stated complaint: Rt ankle hurting and swelling Time Seen by Provider: 05/23/25 23:37 History of Present Illness: Patient is a 39-year-old female without medical history is that fell out of her front door injuring her right foot. She has pain from mid foot to ankle. This is mainly laterally. This occurred at 3 PM today, and appears to be worsening or consistent since that time. She has iced it at home. She has never had a sprain or fracture. Patient cannot walk on her foot. Associated symptoms: Deny chest pain or fever(s) Related Data Previous Rx's ?Medication ?Instructions ?Recorded amoxicillin 500 mg-potassium 1 tab PO BID #14 tabs 02/25 clavulanate 125 mg tablet (Augmentin) cefdinir 300 mg capsule 300 mg PO BID #14 caps 12/06 tramadol 50 mg tablet 50 mg PO Q8H PRN pain #14 ta bs 12/06/24 Allergies Allergy/AdvReac Type Severity Reaction Status Date / Time sulfamethoxazole (From Allergy Severe ALGY-Anaphy Verified 12/06/24 08:46 Bactrim) laxis trimethoprim (From Bactrim) Allergy Severe ALGY-Anaphy Verified 12/06/24 08:46 laxis Review of Systems General: Reports: 10 or more systems reviewed and unremarkable except in HPI and below Const: Denies: fever(s) or chills Eyes: Denies: change in vision or blurry vision ENMT: Denies: throat pain or mouth pain Card: Denies: chest pain or palpitations Resp: Denies: dyspnea or non-productive cough GI: Denies: abdominal pain, nausea or vomiting : Denies: flank pain or difficulty voiding Musc: Reports: extremity pain (RLE), extremity swelling, joint pain, joint swelling, joint stiffness, limited range of motion, muscle cramps and muscle weakness; Denies: neck pain, joint redness or joint warmth Neuro: Denies: headache(s), numbness in extremities or weakness in extremities PFSH ED PFSH: Medical History (Updated 05/24/25 @ 00:07 by SUSANNA Loyd) Eyelid cellulitis Spasm of muscle of lower back 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 Female Reproductive History: Date of last menstrual period: 05/14/25 Physical Exam Const: COMMON NORMALS: no acute distress, average body habitus and patient oriented x3 EXAM LIMITATIONS: no altered mental status and no behavioral limitations GENERAL APPEARANCE: cooperative and comfortable HENMT: COMMON NORMALS: normocephalic and atraumatic HEAD & SCALP: normocephalic and atraumatic Neck/C-Spine: COMMON NORMALS: full ROM, no lymphadenopathy and supple Lymph: LYMPHATIC: no lymphadenopathy noted and no lymphedema noted Chest: COMMONS NORMALS: normal inspection of the chest and normal palpation of entire chest wall Resp: COMMON NORMALS: normal respiratory effort, No retractions and clear to auscultation bilaterally AUSCULTATION: clear to auscultation bilaterally Cardio: COMMON NORMALS: regular rate and regular rhythm RATE: regular rate RHYTHM: regular rhythm GI: COMMON NORMALS: Normal to inspection, nondistended, normoactive bowel sounds present, Soft to palpation and non-tender PALPATION: Yes Soft to palpation : COMMON NORMALS: Yes no CVA tenderness BLADDER/KIDNEY EXAM: Yes no CVA tenderness Back/Pelvis: COMMON NORMALS: no CVA tenderness Extremity: COMMON NORMALS: normal to inspection, capillary refill normal and no clubbing, cyanosis or edema GENERAL: Yes normal exam except as noted RIGHT LOWER EXTREMITY: Yes foot & digits Right foot and digits: Yes inspection (No ecchymosis), Yes palpation (Pain with inversion and eversion), Yes ROM (decreased due to pain) and Yes tendon exam (intact; c/w anterior tibial strain) Neuro: COMMON NORMALS: patient oriented x3 Psych: COMMON NORMALS: mental status grossly normal and Normal thought process present THOUGHT PROCESS: Normal thought process present Skin: COMMON NORMALS: no rashes or lesions noted, no wounds and turgor normal GENERAL SKIN EXAM: no rashes or lesions noted and turgor normal Course Vital Signs: Vital signs: Vital Signs Temperature 98.0 F 05/23/25 22:24 Pulse Rate 76 05/23/25 23:50 Respiratory Rate 16 05/23/25 22:24 Blood Pressure 95/68 05/23/25 23:50 Pulse Oximetry 98 05/23/25 23:50 MDM - Extremity (Nontraumatic) Medical Decision Making Patient is 39-year-old female presents after a fall outside to her door and rolling of her right ankle. She has pain on the anterior portion of her right ankle and the lateral portion. This appears to be a lower ankle strain, however with her exam with pain in multiple places, I did refer her to podiatry with concern of high ankle sprain that does have different treatment. I placed her in an ankle splint, and offered crutches as needed. Patient will call and follow-up. She is improved after Tylenol, and ibuprofen. She will continue to ice this area as well Medical Records I reviewed the patient's medical records. Lab Data Radiology Impressions Ankle X-Ray 05/23/25 23:37 IMPRESSION: No acute bony abnormalities. All radiology interpretation(s) finalized by discharge Discharge Plan Discharge Patient Disposition: Home Clinical Impression: Right ankle sprain Qualifiers: Encounter type: initial encounter Involved ligament of ankle: anterior talofibular ligament Qualified Code(s): S93.491A - Sprain of other ligament of right ankle, initial encounter Condition: Stable Prescriptions: No Action cefdinir 300 mg capsule 300 mg PO BID Qty: 14 0RF tramadol 50 mg tablet 50 mg PO Q8H PRN (Reason: pain) Qty: 14 0RF amoxicillin-pot clavulanate [Augmentin] 500-125 mg tablet 1 tab PO BID Qty: 14 0RF Discharge Orders: Discharge ED (Routine); Ordered 05/24/25 Ordered By: Lauren Jones Referrals: Moy Dwyer DPM [Physician, Podiatry] Leslie Aguilera MD [Primary Care Provider, Family Practice] Discharge Diet: Usual diet Discharge Activity: Limit activity as instructed Patient Instructions: Ankle Sprain (ED), Patient Portal & [place] Instructions Activity Restrictions/Additional Instructions: Wear ankle splint for comfort Tylenol and ibuprofen for pain You may follow-up with podiatry locally. I will put in a referral that you can call for follow-up. 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
== END 2025-05-24 00:05 | disposition home or self-care (01) ==
PROVIDERS: Emergency Provider Physician Assistant; PCP Family Medicine
DX: S93.491A Sprain of other ligament of right ankle, initial encounter (principal); X58.XXXA Exposure to other specified factors, initial encounter
CPT/HCPCS: 29515; 73610; 99283; J9999

== ENCOUNTER → 2025-05-25 18:45 | Outpatient (BNVA) | payer MEDICAID, SELFPAY | PROVIDERS: PCP Family Medicine; Visit Provider Nurse Practitioner | DX: L02.416 Cutaneous abscess of left lower limb (principal) | CPT/HCPCS: 87070; 87077; 87184 ==